=== PATIENT | male | born 1980 | race Two or more races ===

== ENCOUNTER 2016-06-15 17:49 | Emergency (ER) | payer MEDICAID ==
[~2016-06-15] VITALS: Ht 175.3 cm; Wt 87.0 kg
[2016-06-15 18:06] VITALS: Ht 175.3 cm; Wt 87.0 kg
[2016-06-15] MEDS ORDERED: HYDR-902 PO (19:01)
--- NOTE | 2016-06-15 19:16 | ERD ---
ER Documentation Chief Complaint Date/Time DATE: 06/15/16 TIME: 19:13 Chief Complaint MED REFILL FOR METHADONE 20MG DAILY HPI This is a 36-year-old male that presents to the ER requesting a methadone refill. [place] and leg pain. Patient recently came to the [place], and he was told that he could calm to the ER to get methadone. At this time patient denies any pain, he didn't have a methadone this morning. He denies any drug use or drug addictions. Patient denies any fevers or chills. He denies any urinary bowel incontinence. He denies any saddle like anesthesia. He denies any recent trauma. ROS 12 point review of systems was done, all negative except per HPI.. Medications Home Meds Active Scripts Hydrocodone/Acetaminophen ([place] 10-325 Tablet) 1 Each Tablet, 1 TAB PO Q6H Y for PAIN, #20 TAB Prov:MARCELO JAQUEZ 06/15/16 Physical Exam Vitals Vital Signs Date Time Temp Pulse Resp B/P Pulse Ox O2 Delivery O2 Flow Rate FiO2 06/15/16 18:06 97.0 69 18 106/61 99 Physical Exam GENERAL: The patient is well developed and appropriate for usual state of health , in no apparent distress. NECK: C-spine is soft and supple. There is no cervical lymphadenopathy. CHEST: Clear to auscultation bilaterally. There are no rales, wheezes or rhonchi. HEART: Regular rate and rhythm. No murmurs, clicks, rubs or gallops. ABDOMEN: Soft, nontender and nondistended. Good bowel sounds. No rebound or guarding. No gross peritonitis. No gross organomegaly or masses. No Vanegas sign or McBurney point tenderness. No pulsatile abdominal mass. BACK: No midline or flank tenderness. Tender to palpation from L3-L5. Tense paraspinal muscles. Negative leg raise test. No step- offs. EXTREMITIES: Equal pulses bilaterally. There is no peripheral clubbing, cyanosis or edema. No focal swelling or erythema. Full range of motion. Grossly neurovascularly intact. NEURO: Alert and oriented. Cranial nerves II through XII are intact. Motor strength in all 4 extremities with 5/5 strength. Sensation grossly intact. Normal speech and gait. SKIN: There is no apparent rash or petechia. The skin is warm and dry. Procedures/MDM This is a 36-year-old male presents to the ER requesting a methadone refill. At this time I am unable to provide patient with a methadone refill as this can only be done by a pain specialist. I offered patient some [place]. Patient was not exhibiting drug-seeking behavior and he does not have a [facility] record. Patient was given information for pain specialist may be able to help him with methadone refills. Patient is afebrile and well-appearing. He needs to return to ER if symptoms worsen otherwise he should follow up with pain specialists. Patient understands and agrees with plan. Departure Diagnosis: Primary Impression: Encounter for medication refill Condition: Stable Patient Instructions: Taking Medicine Safely Referrals: SYLVIA DUNCAN MDEVARISTO CUNNINGHAM Jr., MD SCHLESINGER, MARK P. MD Additional Instructions: Call your primary care doctor TOMORROW for an appointment during the next 1-2 days.See the doctor sooner or return here if your condition worsens before your appointment time. MARCELO JAQUEZ Jun 15, 2016 19:16
== END 2016-06-15 19:03 | disposition home or self-care (01) ==
LOC: E/R 17:49
DX: Z76.0 Encounter for issue of repeat prescription (principal)
CPT/HCPCS: 99281

== ENCOUNTER 2016-06-18 18:16 | Emergency (ER) | payer MEDICAID ==
[~2016-06-18] VITALS: Ht 175.3 cm; Wt 88.0 kg
[~2016-06-18 18:16] MED LIST: HYDR-902 PO
[2016-06-18 18:51] VITALS: Ht 175.3 cm; Wt 88.0 kg
[2016-06-18] MEDS ORDERED: TRAM50TA2 PO ×2 (19:11→19:14)
--- NOTE | 2016-06-18 19:21 | ERD ---
ER Documentation Chief Complaint Date/Time DATE: 06/18/16 TIME: 19:18 Chief Complaint medication refill HPI 36-year-old male presents to emergency department for pain medication, patient has history of chronic back pain, is [place], patient was seen here earlier this week, was given Claridge, states that he does not work, patient's request and if he can have tramadol instead. Patient is complaining of lower back pain, has history of an accident before which made him had this pain. Patient denies any numbness or tingling. Patient denies any new symptoms. Patient denies any recent injury. ROS All systems reviewed and are negative except as per history of present illness. Medications Home Meds Active Scripts Tramadol HCl (Tramadol HCl) 50 Mg Tablet, 50 MG PO Q6 Y for SEVERE PAIN LEVEL 7- 10, #7 TAB Prov:NEELIMA ORTIZ ICT TRAINER 06/18/16 Hydrocodone/Acetaminophen (Claridge 10-325 Tablet) 1 Each Tablet, 1 TAB PO Q6H Y for PAIN, #20 TAB Prov:MARCELO JAQUEZ 06/15/16 Allergies Allergies: Coded Allergies: No Known Drug Allergies (Verified Allergy, Unknown, 06/18/16) PMhx/Soc Medical and Surgical Hx: pt denies Medical Hx, pt denies Surgical Hx FmHx Family History: No coronary disease, No diabetes, No other Physical Exam Vitals Vital Signs Date Time Temp Pulse Resp B/P Pulse Ox O2 Delivery O2 Flow Rate FiO2 06/18/16 18:51 97.7 69 20 107/82 99 Physical Exam GENERAL: The patient is well developed and appropriate for usual state of health, in no apparent distress. CHEST: Clear to auscultation bilaterally. There are no rales, wheezes or rhonchi. HEART: Regular rate and rhythm. No murmurs, clicks, rubs or gallops. No S3 or S4. ABDOMEN: Soft, nontender and nondistended. Good bowel sounds. No rebound or guarding. No gross peritonitis. No gross organomegaly or masses. No Vanegas sign or McBurney point tenderness. BACK: No midline or flank tenderness. EXTREMITIES: Equal pulses bilaterally. There is no peripheral clubbing, cyanosis or edema. No focal swelling or erythema. Full range of motion. Grossly neurovascularly intact. NEURO: Alert and oriented. Cranial nerves 2-12 intact. Motor strength in all 4 extremities with 5/5 strength. Sensation grossly intact. Normal speech and gait. SKIN: There is no apparent rash or petechia. The skin is warm and dry. HEMATOLOGIC AND LYMPHATIC: There is no evidence of excessive bruising or lymphedema. No gross cervical, axillary, or inguinal lymphadenopathy. Procedures/MDM Medical decision making: Patient's here for chronic pain, needs a refill of his medication, I explained to him that I can give him only 7 pills of tramadol since he is already on Clar[place], patient is advised to see paint tinter for further management of his pain. Patient was advised to return to emergency department for incontinence, hematuria, severe back pain uncontrolled pain, or any other worsening symptoms. Departure Diagnosis: Primary Impression: Chronic pain Chronic pain type: other chronic pain Qualified Code: G89.29 - Other chronic pain Condition: Stable Patient Instructions: Chronic Pain Referrals: [facility] YOU HAVE RECEIVED A MEDICAL SCREENING EXAM AND THE RESULTS INDICATE THAT YOU DO NOT HAVE A CONDITION THAT REQUIRES URGENT TREATMENT IN THE EMERGENCY DEPARTMENT. FURTHER EVALUATION AND TREATMENT OF YOUR CONDITION CAN WAIT UNTIL YOU ARE SEEN IN YOUR DOCTORS OFFICE WITHIN THE NEXT 1-2 DAYS. IT IS YOUR RESPONSIBILITY TO MAKE AN APPOINTMENT FOR FOLOW-UP CARE. IF YOU HAVE A PRIMARY DOCTOR --you should call your primary doctor and schedule an appointment IF YOU DO NOT HAVE A PRIMARY DOCTOR YOU CAN CALL OUR PHYSICIAN REFERRAL HOTLINE AT IF YOU CAN NOT AFFORD TO SEE A PHYSICIAN YOU CAN CHOSE FROM THE FOLLOWING [facility] [address] [facility]. [facility] [address] [facility] [facility] [address] [facility] [facility] [address] [facility] [facility] [address] [facility]. [facility]. [address] [facility] [facility] YOU HAVE RECEIVED A MEDICAL SCREENING EXAM AND THE RESULTS INDICATE THAT YOU DO NOT HAVE A CONDITION THAT REQUIRES URGENT TREATMENT IN THE EMERGENCY DEPARTMENT. FURTHER EVALUATION AND TREATMENT OF YOUR CONDITION CAN WAIT UNTIL YOU ARE SEEN IN YOUR DOCTORS OFFICE WITHIN THE NEXT 1-2 DAYS. IT IS YOUR RESPONSIBILITY TO MAKE AN APPOINTMENT FOR FOLOW-UP CARE. IF YOU HAVE A PRIMARY DOCTOR --you should call your primary doctor and schedule and appointment IF YOU DO NOT HAVE A PRIMARY DOCTOR YOU CAN CALL OUR PHYSICIAN REFERRAL HOTLINE AT . IF YOU CAN NOT AFFORD TO SEE A PHYSICIAN YOU CAN CHOSE FROM THE FOLLOWING [facility] INSTITUTIONS: [facility] [address] [place] [address] [facility] [address] [place] [address] [facility] [address] [place] [address] [facility] URGENT CARE/SPECIALTIES Additional Instructions: see pain management NEELIMA ORTIZ NP Jun 18, 2016 19:21
== END 2016-06-18 19:21 | disposition home or self-care (01) ==
LOC: FTE 18:16 → E/R 19:21
DX: G89.29 Other chronic pain (principal)
CPT/HCPCS: 99283